=== PATIENT | female | born 1940 | race Caucasian/White ===

== ENCOUNTER 2024-04-01 13:34 | Observation (INO) | payer MEDICARE ==
[2024-04-01 15:00] LABS: BASOPHILS PERCENT AUTO 0.9 % (0.2-1.5); EOSINOPHILS ABSOLUTE AUTO 0.1 x10-3/uL (0.0-0.8); EOSINOPHILS PERCENT AUTO 1.9 % (0.6-8.1); HEMATOCRIT 33.3 % (34.2-48.2); HEMOGLOBIN 10.4 g/dL (11.4-15.5); LYMPHOCYTES ABSOLUTE AUTO 0.7 x10-3/uL (1.0-4.4); LYMPHOCYTES PERCENT AUTO 12.2 % (18.4-52.1); MEAN CORPUSCULAR HEMOGLOBIN 25.2 pg (23.9-33.9); MEAN CORPUSCULAR HGB CONC 31.3 g/dL (31.9-34.8); MEAN CORPUSCULAR VOLUME 80.7 fL (76.7-100.5); MEAN PLATELET VOLUME 7.1 fL (7.1-12.4); MONOCYTES ABSOLUTE AUTO 0.8 x10-3/uL (0.3-1.0); MONOCYTES PERCENT AUTO 14.3 % (4.4-15.7); NEUTROPHILS PERCENT AUTO 70.7 % (30.8-76.2); PLATELET COUNT,PLT 306 x10(3)uL (151-488); RED CELL DISTRIBUTION WIDTH 18.3 % (12.3-16.5); WHITE BLOOD CELL COUNT,WBC 5.6 x10-3/uL (3.0-10.3)
[2024-04-01 15:10] LABS: ALANINE AMINOTRANSFERASE,ALT 36 U/L (12-36); ALBUMIN 3.4 g/dL (3.2-4.6); ALKALINE PHOSPHATASE 56 IU/L (56-112); ASPARTATE AMNIOTRANSFERASE,AST 29 IU/L (5-25); BILIRUBIN TOTAL 0.4 mg/dL (0.1-1.3); BLOOD UREA NITROGEN,BUN 32 mg/dL (7-18); BUN/CREATININE RATIO 14.5 (9-20); CALCIUM 8.7 mg/dL (8.6-10.2); CARBON DIOXIDE,CO2 26 mmol/L (21-32); CHLORIDE,CL 107 mmol/L (100-110); ESTIMATED GFR 21 mL/min (>60); GLUCOSE RANDOM 100 mg/dL (80-116); INR 1.1 (1.00-1.24); POTASSIUM,K 4.4 mmol/L (3.5-5.3); PROTEIN TOTAL,TP 6.9 g/dL (6.0-8.0); PROTHROMBIN TIME 11.3 sec (9.0-11.1); SODIUM,NA 143 mmol/L (135-145)
[2024-04-01 15:13] LABS: CREATININE 2.2 mg/dL (0.55-1.02)
[2024-04-01 15:40] LABS: RED BLOOD CELL COUNT 4.13 x10(6)uL (3.60-5.20)
[2024-04-01] MEDS: Furosemide 40 MG/4 ML VIAL IVPUSH ONE (16:50)
[2024-04-01] MEDS: Apixaban 2.5 MG Tab PO SCH (21:27)
[2024-04-01] MEDS: Metoprolol Succinate 100 MG Tab.ER PO SCH (21:27)
[2024-04-01] MEDS: Amiodarone 200 MG Tab PO ONE (21:41)
[2024-04-02] MEDS: Levothyroxine 50 MCG Tab PO SCH (05:00)
[2024-04-02] MEDS: Losartan 50 MG Tab PO SCH (08:26)
[2024-04-02] MEDS: Aspirin 81 MG Tab.EC PO SCH (08:27)
[2024-04-02 09:37] LABS: BLOOD UREA NITROGEN,BUN 39 mg/dL (7-18); BUN/CREATININE RATIO 20.5 (9-20); CALCIUM 8.9 mg/dL (8.6-10.2); CARBON DIOXIDE,CO2 29 mmol/L (21-32); CHLORIDE,CL 105 mmol/L (100-110); CREATININE 1.9 mg/dL (0.55-1.02); EST CRCL DRUG DOSING (CG) 17.12 mL/min; ESTIMATED GFR 26 mL/min (>60); GLUCOSE RANDOM 120 mg/dL (80-116); POTASSIUM,K 3.8 mmol/L (3.5-5.3); SODIUM,NA 143 mmol/L (135-145)
== END 2024-04-02 10:00 | disposition home or self-care (01) ==
LOC: FB.ED 13:34 → FB.MS 20:06
PROVIDERS: ADMIT Family Medicine; ATTEND Family Medicine
DX: I13.0 Hypertensive heart and chronic kidney disease with heart failure and stage 1 through stage 4 chronic kidney disease, or unspecified chronic kidney disease (principal); I50.43 Acute on chronic combined systolic (congestive) and diastolic (congestive) heart failure; N18.4 Chronic kidney disease, stage 4 (severe); I48.0 Paroxysmal atrial fibrillation; E78.00 Pure hypercholesterolemia, unspecified; E03.9 Hypothyroidism, unspecified; Z88.8 Allergy status to other drugs, medicaments and biological substances; Z79.01 Long term (current) use of anticoagulants; Z79.82 Long term (current) use of aspirin; Z79.899 Other long term (current) drug therapy; Z79.890 Hormone replacement therapy
CPT/HCPCS: 36415; 71046; 80048; 80053; 83605; 83880; 85025; 85379; 85610; 93005; 96374; 99222; 99238; 99285-25; A9270-GY; G0378; J1940

== ENCOUNTER 2024-08-26 08:06 | Day surgery (SDC) | payer MEDICARE ==
[~2024-08-26 08:06] MED LIST: Lactated Ringers 1,000 ML IV PRN
[2024-08-26] MEDS ORDERED: fentaNYL 100 MCG/2 ML SDV IV ONE (08:07)
[2024-08-26] MEDS ORDERED: Midazolam 1 MG/ML 2 ML SDV IV ONE (08:07)
[2024-08-26] MEDS: Sodium Chloride 0.9% 10 ML Syringe FLUSH PRN (08:50)
[2024-08-26] MEDS: acetaZOLAMIDE 500 MG Cap.ER PO ONE (09:42)
[2024-08-26] MEDS ORDERED: acetaZOLAMIDE 250 MG Tab PO ONE (10:00)
== END 2024-08-26 10:05 | disposition home or self-care (01) ==
LOC: FB.SDS 08:06
PROVIDERS: ATTEND Ophthalmology
DX: H26.9 Unspecified cataract (principal); I12.9 Hypertensive chronic kidney disease with stage 1 through stage 4 chronic kidney disease, or unspecified chronic kidney disease; N18.30 Chronic kidney disease, stage 3 unspecified; E03.9 Hypothyroidism, unspecified; E78.5 Hyperlipidemia, unspecified; Z79.890 Hormone replacement therapy; Z87.891 Personal history of nicotine dependence; Z79.899 Other long term (current) drug therapy
CPT/HCPCS: 66984; A9270; J2250; J3010; V2632; 00142; 99100